=== PATIENT | male | born 1975 | race Two or more races ===

== ENCOUNTER 2019-03-16 14:52 | Outpatient (CLI) | payer OTHER | END 2019-03-16 14:53 | disposition home or self-care (01) | LOC: SC 14:52 | PROVIDERS: ATTEND Internal Medicine Pulmonary Disease | DX: R06.83 Snoring (principal); G47.8 Other sleep disorders; R41.89 Other symptoms and signs involving cognitive functions and awareness; G47.10 Hypersomnia, unspecified | CPT/HCPCS: 99203; 99212 ==

== ENCOUNTER 2019-04-11 20:11 | Outpatient (CLI) | payer OTHER | END 2019-04-11 20:12 | disposition home or self-care (01) | LOC: SC 20:11 | PROVIDERS: ATTEND Internal Medicine Pulmonary Disease | DX: R06.83 Snoring (principal); G47.10 Hypersomnia, unspecified | CPT/HCPCS: 95810 ==

== ENCOUNTER 2019-05-10 10:23 | Outpatient (CLI) | payer OTHER ==
--- NOTE | 2019-05-10 10:43 | CONSULTATION NOTE ---
Information from patient questionnaire entered by Raquel Tapia. I have reviewed and concur with the information entered by Raquel Tapia. This document represents the service I personally performed and the decisions made by me, Stuart Doherty MD, [facility]. - History of Present Illness HPI: Mr. Bird returned for follow up of the sleep study he had on 04/11/19. The polysomnography showed that the patient had normal sleep efficiency. Except for mild sleep fragmentation, the sleep architecture was normal as well. Res piratory monitoring showed no significant sleep disordered breathing (AHI = 0.6) or hypoxia (melissa oxygen saturation of 91%). The rare respiratory events occurred mainly during supine sleep (supine AHI = 1.4; non-supine = 0.00). Snore was moderate in intensity. There was no periodic leg movement of sleep. Cardiac rhythm was normal sinus rhythm with occasional premature ventricular contractions. No abnormal behavior (parasomnia) observed during the night. The patient was informed of these findings. I explained to him that his excessive daytime sleepiness is most likely from inadequate sleep at night. He reports getting 6 7 hours of sleep a night on the average. He is also concerned of his snore as it is bothersome to his and children. Initial [place] Sleepiness Scale score: 22 Current [place] Sleepiness Scale score: 23 - Allergies/Medications Allergies and home medications reviewed: No - Review of Systems Review of systems same as previous: Yes - Impression 1. Hypersomnia, most likely from insufficient sleep at night. The patient advised to allow at least 8 hours for sleeping. 2. Primary Snore (ICD-10 R06.83), moderate, but no significant sleep disordered breathing. Treatment for snore includes oral appliance therapy and upper airway surgery. [place] an oral [place]. - Plan 1. See a dentist for oral appliance therapy for snore. 2. Allow 8 hours for sleeping at night. Keep wake up time the same every day. 3. Return to the sleep clinic on as needed basis.
== END 2019-05-10 10:24 | disposition home or self-care (01) ==
LOC: SC 10:23
PROVIDERS: ATTEND Internal Medicine Pulmonary Disease
DX: G47.10 Hypersomnia, unspecified (principal); R06.83 Snoring
CPT/HCPCS: 99212; 99213

== ENCOUNTER 2022-04-15 21:55 | Emergency (ER) | payer OTHER ==
[2022-04-15 22:09] VITALS: BP 133/88
--- NOTE | 2022-04-16 00:24 | ED Physician Documentation ---
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 and this evening he was at work when he stuck himself with a 16-gauge needle that had been placed into the patient's arm. He is uncertain of the patient's HIV status and this was not investigated at the time of the incident. Review of Systems Constitutional: denies: Fever Nose: denies: Congestion Throat: denies: Sore throat Respiratory: denies: Cough GI: denies: Vomiting, Diarrhea : denies: Dysuria, Frequency Skin: denies: Rash PD PAST MEDICAL HISTORY - Past Medical History Past Medical History: Yes Cardiovascular: Hypertension - Present Medications Home Medications: Ambulatory Orders Medication Instructions Recorded Confirmed Lisinopril [Zestril] 10 mg PO DAILY 04/15/22 04/15/22 - Allergies Allergies/Adverse Reactions: Allergies Allergy/AdvReac Type Severity Reaction Status Date / Time No Known Drug Allergies Allergy Verified 04/15/22 22:09 - Social History Does the pt smoke?: No Smoking Status: Never smoker Does the pt drink ETOH?: No Does the pt have substance abuse?: No PD ED PE NORMAL - Vitals Vital signs reviewed: Yes (normal ) - General General: Alert and oriented X 3, No acute distress, Well developed/nourished - HEENT HEENT: Atraumatic, PERRL, EOMI - Respiratory Respiratory: No respiratory distress - Derm Derm: Normal color, Warm and dry, No rash - Extremities Extremities: No deformity, No edema, Other (The finger in question no longer has evidence of the puncture. 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 We discussed postexposure prophylaxis and I have recommended to the patient that he obtain confirmation from his workplace that the patient that he was working with is HIV negative. I have recommended that if he finds out that this patient is HIV positive that he take postexposure prophylaxis. He has until 6:30 PM on evening to begin this. We were unable to locate this medicine in our hospital. He is immunized against hep b. An employee exposure panel is obtained. Departure - Departure Disposition: Home, Self Care Clinical Impression: Employee exposure to blood Condition: Stable Instructions: ED Body Fluid Exp HC Worker Follow-Up: ARTHUR Lantigua [Provider Group] Comments: Watson, today it looks like you have had a needlestick to your finger from an source that is known. The recommendation is to find out if the source is HIV positive. If it is not, no further treatment is recommended at this time. If if the patient who's is blood you were exposed to is positive for HIV the recommendation is to take postexposure prophylaxis. This is a combination of 3 medications that you will need to take for a month. You have 72 hours to begin this after your exposure. My recommendation is to follow-up with your workplace tomorrow for confirmation of the HIV status of the patient you were exposed to. Discharge Date/Time: 04/16/22 01:09
[2022-04-17 05:10] LABS: HCV AB 0.1 s/co ratio (0.0-0.9); HIV SCREEN 4TH GENERATION Non Reactive (Non Reactive)
== END 2022-04-16 01:09 | disposition home or self-care (01) ==
LOC: ED 21:55
DX: Z20.6 Contact with and (suspected) exposure to human immunodeficiency virus [HIV] (principal); W46.1XXA Contact with contaminated hypodermic needle, initial encounter; Y93.F9 Activity, other caregiving; Y92.538 Other ambulatory health services establishments as the place of occurrence of the external cause; Y99.0 Civilian activity done for income or pay
CPT/HCPCS: 1040M; 86317; 86803; 87389; 99282; 99283